=== PATIENT | female | born 1940 | race Caucasian/White ===

== ENCOUNTER 2021-06-09 16:43 | Outpatient (CLI) | payer MEDICARE, BC, SELFPAY ==
[2021-06-09 19:10] VITALS: BP 173/68; PULSE 82; RESP 22; TEMP 37.3; O2SAT 92
[2021-06-09 19:30] VITALS: BP 151/73; PULSE 77; RESP 22; O2SAT 96
[2021-06-09 20:00] VITALS: BP 156/74; PULSE 76; RESP 24; TEMP 36.7; O2SAT 96
== END 2021-06-09 16:44 | disposition home or self-care (01) ==
LOC: INF 16:54
PROVIDERS: Visit Provider Family Medicine
DX: U07.1 COVID-19 (principal)
CPT/HCPCS: 96374; Q0222